=== PATIENT | male | born 2000 | race Two or more races ===

== ENCOUNTER 2024-12-03 21:15 | Emergency (ER) | payer MEDICAID, SELFPAY ==
[2024-12-03 21:16] VITALS: BMI 23.5
[2024-12-03 21:30] VITALS: BP 132/89; PULSE 71; RESP 18; TEMP 36.7; O2SAT 97
--- NOTE | 2024-12-03 21:40 | PD.EDADULT ---
ED General RME/HPI General Chief complaint: Dental/Oral/Throat Stated complaint: FEVER SORE THROAT Time Seen by Provider: 12/03/24 21:36 Arrival date/time: 12/03/24 21:15 CC: Cough fever sore throat HPI ongoing for the past 3 days fever responsive to Tylenol but then comes back no other members of the family or people around him are ill as far as he can see. No other complaints including chest pain shortness of breath or difficulty breathing Related Data Previous Rx's ?Medication ?Instructions ?Recorded ondansetron 4 mg disintegrating 4 mg PO Q6H PRN nausea and 07/12/22 tablet vomiting #30 tabs ibuprofen 600 mg tablet 600 mg PO TID #14 tabs 12/03/24 Allergies Allergy/AdvReac Type Severity Reaction Status Date / Time Penicillins Allergy Mild Rash Verified 12/03/24 21:19 Review of Systems Review of Systems Narrative Review of Systems: [General: Not in any acute distress Head normocephalic HEENT: Eyes pupils are PERRLA EOMs are intact mouth pink moist membranes uvula is midline swallow symmetrical posterior pharynx nonerythematous nonedematous no exudative patches on the tonsils. All other subsystems of HEENT are within acceptable limits Neck is supple nontender no LAD Chest equal chest rise nontender to palpation Respiratory: Clear to auscultation no wheezes crackles or rubs CV: Rate rhythm is regular no murmurs rubs or clicks Abdomen is soft nontender no masses positive bowel sounds all 4 quadrants Back: No CVA tenderness no spinous process tenderness from cervical spine thoracic and lumbar spine Skin: Intact no petechiae rash induration ulceration or crepitus Extremities: Moving all extremity against resistance cap refill less than 2 seconds neurosensory intact Neuro: Awake alert oriented x3 Glascow coma 15 no focal deficits] Course Quality Measures none Orders Category Date Time Status Ibuprofen Tab [Motrin Tab] Med 12/03/24 21:39 Discontinued 600 mg PO X1 ONE Vital Signs Vital signs: Vital Signs Temperature 98.0 F 12/03/24 21:30 Pulse Rate 71 12/03/24 21:30 Respiratory Rate 18 12/03/24 21:30 Blood Pressure 132/89 H 12/03/24 21:30 Pulse Oximetry (%) 97 12/03/24 21:30 Oxygen Delivery Method Room Air 12/03/24 21:30 Discharge Plan Plan Patient Disposition: HOME (Self Care) Patient condition on transfer: Stable Prescriptions/Referrals Prescriptions/Med Rec: New ibuprofen 600 mg tablet 600 mg PO TID Qty: 14 0RF No Action ondansetron 4 mg tablet,disintegrating 4 mg PO Q6H PRN (Reason: nausea and vomiting) Qty: 30 0RF Referrals: Christopher Silva MD [Physician, Family Practice] - In 1 week No Primary/Family,Physician [Primary Care Provider] - In 1 week Problem List Clinical Impression: Viral syndrome, Fever Patient/Caregiver Discharge Instructions Other Activity Instructions:: Take the medications as prescribed rest drink plenty of fluids with this worsening of symptoms follow-up with your primary care doctor. Education Materials: ED Viral Syndrome (Adult) Print Language: Nepali Stand Alone Forms: Annette Award Info., Patient Portal Info Letter, Work/School Release PA/MEAT PASSER Supervising Physician PA/MEAT PASSER Supervising Physician: Kaleb Meyer ENP [facility] Clinical Information Provided by patient Medical Records Reviewed [facility] Meds/Rx Considered, not Ordered None Labs/Rad/Tests considered, not Ordered None Chronic Illness/Social Conditions which may negatively complicate care or outcome(s)-explain: None or not applicable EKG EKG not done Lab Interpretation Lab(s) interpretation(s): COVID and influenza are negative Imaging Imaging interpretation: none Medication Administration(s) none Medication Administration History Discontinued Medications Ibuprofen (Ibuprofen Tab 600 Mg Tablet) 600 mg PO X1 ONE Stop: 12/03/24 21:40 Diagnosis Differential diagnosis: COVID influenza strep pharyngitis Dispositon Disposition: Discharge Home
[2024-12-03] MEDS: IBUPROFEN TAB 600 MG TABLET PO (22:10)
== END 2024-12-03 22:42 | disposition home or self-care (01) ==
PROVIDERS: Emergency Provider Emergency Medicine
DX: B34.9 Viral infection, unspecified (principal)
CPT/HCPCS: 99281; A9270